=== PATIENT | female | born 1945 | race Two or more races ===

== ENCOUNTER 2017-08-12 12:01 | Outpatient (CLI) | payer OTHER ==
[~2017-08-12 12:01] MED LIST: ATACAND16 MG; CATAFLAM50 MG PO; ZOCOR5 MG
== END 2017-08-12 15:22 | disposition home or self-care (01) ==
LOC: RAD 12:01
DX: S92.355K Nondisplaced fracture of fifth metatarsal bone, left foot, subsequent encounter for fracture with nonunion (principal)

== ENCOUNTER 2018-01-14 13:53 | Outpatient (CLI) | payer OTHER ==
[~2018-01-14 13:53] MED LIST changes: +DICLOFENAC POTA50 MG PO; +TIZANIDINE HCL2 MG PO
== END 2018-01-14 14:02 | disposition home or self-care (01) ==
LOC: RAD 13:53
DX: S92.354K Nondisplaced fracture of fifth metatarsal bone, right foot, subsequent encounter for fracture with nonunion (principal)

== ENCOUNTER 2018-02-22 10:56 | Outpatient (CLI) | payer OTHER | END 2018-02-22 11:20 | disposition home or self-care (01) | LOC: MRI 10:56 | DX: M76.72 Peroneal tendinitis, left leg (principal) | CPT/HCPCS: 73721 ==

== ENCOUNTER 2018-09-09 14:12 | Outpatient (CLI) | payer OTHER | END 2018-09-09 15:00 | disposition home or self-care (01) | LOC: NUCLEAR 14:12 | DX: M81.0 Age-related osteoporosis without current pathological fracture (principal) ==

== ENCOUNTER 2018-11-12 12:25 | Outpatient (CLI) | payer OTHER | END 2018-11-12 12:32 | disposition home or self-care (01) | LOC: LAB 12:25 | DX: E88.89 Other specified metabolic disorders (principal); E55.9 Vitamin D deficiency, unspecified; M85.88 Other specified disorders of bone density and structure, other site; M81.8 Other osteoporosis without current pathological fracture; E56.1 Deficiency of vitamin K; E21.2 Other hyperparathyroidism ==

== ENCOUNTER 2020-05-17 10:56 | Outpatient (CLI) | payer OTHER ==
[~2020-05-17 10:56] MED LIST changes: +ZANAFLEX2 MG PO
== END 2020-05-17 11:09 | disposition home or self-care (01) ==
LOC: SONOGRAMA 10:56
PROVIDERS: ATTEND Urology
DX: N30.00 Acute cystitis without hematuria (principal); R31.1 Benign essential microscopic hematuria

== ENCOUNTER → 2020-09-10 | Outpatient (CLI) | payer OTHER | END | disposition home or self-care (01) | LOC: RAD 11:46 | PROVIDERS: ATTEND Physical Medicine & Rehabilitation | DX: M76.51 Patellar tendinitis, right knee (principal); M17.11 Unilateral primary osteoarthritis, right knee ==

== ENCOUNTER → 2020-10-18 | Outpatient (CLI) | payer OTHER | END | disposition home or self-care (01) | LOC: MRI 13:15 | PROVIDERS: ATTEND Physical Medicine & Rehabilitation | DX: M17.11 Unilateral primary osteoarthritis, right knee (principal); S83.231A Complex tear of medial meniscus, current injury, right knee, initial encounter | CPT/HCPCS: 73721 ==

== ENCOUNTER 2021-01-03 14:22 | Outpatient (CLI) | payer OTHER | END 2021-01-03 14:25 | disposition home or self-care (01) | LOC: NUCLEAR 14:22 | PROVIDERS: ATTEND Physical Medicine & Rehabilitation | DX: M81.0 Age-related osteoporosis without current pathological fracture (principal) ==

== ENCOUNTER 2021-10-22 11:52 | Emergency (ER) | payer OTHER ==
[~2021-10-22] VITALS: Ht 149.9 cm; Wt 56.7 kg
[2021-10-22] MEDS ORDERED: MECLIZINE HCL25 MG PO (16:03)
== END 2021-10-22 16:16 | disposition home or self-care (01) ==
LOC: ER 11:52
DX: R42 Dizziness and giddiness (principal); I10 Essential (primary) hypertension; Z88.2 Allergy status to sulfonamides; Z88.8 Allergy status to other drugs, medicaments and biological substances

== ENCOUNTER 2023-10-26 17:36 | Emergency (ER) | payer OTHER ==
[~2023-10-26] VITALS: Ht 147.3 cm; Wt 55.3 kg
[~2023-10-26 17:36] MED LIST changes: +MECLIZINE HCL25 MG PO; +NABUMETONE500 MG PO
[2023-10-26 22:18] LABS: PH,URINE 5.5 (5.0-8.0); URINE APPEARANCE Clear; URINE BILIRRUBIN Negative (NEGATIVE); URINE BLOOD Negative; URINE COLOR Yellow; URINE GLUCOSE Negative (NEGATIVE); URINE LEUKOCYTE Negative; URINE NITRATE Negative; URINE PROTEIN Negative (NEGATIVE); URINE UROBILINOGEN 0.2 E.U./dl
[2023-10-26 22:21] LABS: URINE BACTERIA 22.6 uL (0.0-1933); URINE EPITHELIAL CELLS 8.6 uL (0.0-38.8); URINE RBC 2.5 uL (0.0-20.8); URINE WBC 8.8 uL (0.0-23.2)
[2023-10-26 22:38] LABS: CALCIUM 10.8 mg/dL (8.5-10.1); CREATININE SERUM 0.92 mg/dL (0.55-1.02); GFR 59.51; POTASSIUM 4.09 mEq/L (3.5-5.1)
[2023-10-26 23:21] LABS: HEMATOCRIT 40.3 % (36.0-45.00); HEMOGLOBIN 13.5 g/dL (12.0-15.00); MEAN CELL VOLUME 80.7 fL (80.00-100.00); MEAN CORPUSCULAR HEMOGLOBIN 27.1 pg (27.00-32.0); MEAN CORPUSCULAR HGB CONC 33.6 g/dl (32.0-36.0); PLATELET COUNT 284 K/uL (150-450); RED BLOOD COUNT 4.99 M/uL (4.00-6.00); RED CELL DISTRIBUTION WIDTH 15.2 % (11.5-14.5)
[2023-10-26] MEDS ORDERED: AMOX1TAB5 PO (23:41)
[2023-10-26] MEDS ORDERED: CLOTRIMAZOLE45 G1 VAG (23:46)
== END 2023-10-27 00:08 | disposition home or self-care (01) ==
LOC: ER 17:37
PROVIDERS: General Practice; Nurse Practitioner Family
DX: N39.0 Urinary tract infection, site not specified (principal); B96.20 Unspecified Escherichia coli [E. coli] as the cause of diseases classified elsewhere; R30.0 Dysuria; I10 Essential (primary) hypertension; Z88.2 Allergy status to sulfonamides; Z88.8 Allergy status to other drugs, medicaments and biological substances

== ENCOUNTER 2024-05-19 23:00 | Emergency (ER) | payer OTHER ==
[~2024-05-19] VITALS: Ht 149.9 cm; Wt 49.9 kg
[~2024-05-19 23:00] MED LIST changes: +AMOX1TAB5 PO; +CLOTRIMAZOLE45 G1 VAG
[2024-05-19] MEDS ORDERED: LOSARTAN POTAS100 MG PO (23:33)
[2024-05-20] MEDS ORDERED: RINGERS SOLUTION,LACTATED 100 ML IV STA (03:07)
[2024-05-20] MEDS ORDERED: FAMOtidine 10 MG/ML (4ML VIAL) IV PUSH STA (03:08)
[2024-05-20] MEDS ORDERED: ONDANSETRON HCL 2 MG/ML VIAL IV STA (03:08)
[2024-05-20] MEDS ORDERED: HYOSCYAMINE SULFATE 0.125 MG TAB.SUBL SL ONE (03:15)
[2024-05-20] MEDS ORDERED: KETOROLAC TROMETHAMINE 30 MG VIAL IV STA (03:16)
[2024-05-20 04:04] LABS: HEMATOCRIT 40.7 % (36.0-45.00); HEMOGLOBIN 13.4 g/dL (12.0-15.00); MEAN CELL VOLUME 79.1 fL (80.00-100.00); MEAN CORPUSCULAR HEMOGLOBIN 26.1 pg (27.00-32.0); PLATELET COUNT 246 K/uL (150-450); RED BLOOD COUNT 5.14 M/uL (4.00-6.00); RED CELL DISTRIBUTION WIDTH 14.7 % (11.5-14.5)
[2024-05-20 04:21] LABS: CALCIUM 9.9 mg/dL (8.5-10.1); CREATININE SERUM 1.28 mg/dL (0.55-1.02); GFR 40.54; POTASSIUM 4.08 mEq/L (3.5-5.1)
== END 2024-05-20 06:25 | disposition home or self-care (01) ==
LOC: ER 23:01
DX: B34.9 Viral infection, unspecified (principal); K29.70 Gastritis, unspecified, without bleeding; R11.10 Vomiting, unspecified; R53.81 Other malaise; Z88.2 Allergy status to sulfonamides
CPT/HCPCS: 36415; 96365; 99282; J1885; J2405; J3490

== ENCOUNTER 2025-03-09 03:34 | Emergency (ER) | payer OTHER ==
[~2025-03-09] VITALS: Ht 152.4 cm; Wt 45.4 kg
[~2025-03-09 03:34] MED LIST changes: +LOSARTAN POTAS100 MG PO
[2025-03-09] MEDS ORDERED: 0.9 % SODIUM CHLORIDE 1,000 ML IV STA (04:12)
[2025-03-09] MEDS ORDERED: KETOROLAC TROMETHAMINE 30 MG VIAL IV STA (04:13)
[2025-03-09] MEDS ORDERED: HYOSCYAMINE SULFATE 0.125 MG TAB.SUBL ONE (04:13)
[2025-03-09] MEDS ORDERED: KETOROLAC TROMETHAMINE 30 MG VIAL ONE (04:13)
[2025-03-09] MEDS ORDERED: HYOSCYAMINE SULFATE 0.125 MG TAB.SUBL SL ONE (04:15)
[2025-03-09 05:03] LABS: BASO % 0.9 % (0.1-1.2); EOS # 0.16 (0.04-0.54); EOS % 2.3 % (0.7-7.0); LYMPH # 1.73 (1.18-3.74); LYMPH % 25.1 % (19.3-53.1); MEAN PLATELET VOLUME 10.10 fl (9.4-12.4); MONO # 0.48 (0.24-0.82); MONO % 7.0 % (4.7-12.5); NEUT # 4.43 (1.56-6.13); NEUT % 64.3 % (34.0-71.1); RED CELL DISTRIBUTION WIDTH 14.9 % (11.6-14.4)
[2025-03-09 05:05] LABS: ALT/SGPT 13.0 U/L (12-78); AST/SGOT 14.0 U/L (15-37); BILIRUBIN TOTAL 0.36 mg/dL (0.3-1.2); BUN CREA RATIO 15.0 (7.0-25.0); CREATININE SERUM 0.82 mg/dL (0.55-1.02); GFR 67.6; GLOBULINA 3.2 G/DL (2.4-3.5); GLUCOSE FASTING 124.0 mg/dL (65-100); OSMOLALITY SERUM 286.0 MOSM/KG (275-295)
[2025-03-09 06:01] LABS: URINE APPEARANCE Cloudy; URINE BILIRRUBIN Negative (NEGATIVE); URINE BLOOD Negative; URINE COLOR Yellow; URINE GLUCOSE Negative (NEGATIVE); URINE KETONE 15 (NEGATIVE); URINE LEUKOCYTE Small; URINE NITRATE Negative; URINE PROTEIN Negative (NEGATIVE); URINE UROBILINOGEN 1.0 E.U./dl
[2025-03-09 06:04] LABS: URINE BACTERIA 47.9 uL (0.0-1933); URINE EPITHELIAL CELLS 6.4 uL (0.0-38.8); URINE RBC 50.8 uL (0.0-20.8); URINE WBC 27.8 uL (0.0-23.2)
[2025-03-09 06:50] LABS: URINE CAST 1.17 uL (0.0-1.40)
[2025-03-09 06:51] LABS: URINE CRYSTALS MANY /HPF
[2025-03-09] MEDS ORDERED: METRONIDAZOLE/SODIUM CHLORIDE 500 MG/100 ML PIGGYBACK IV ONE ×2 (11:38→11:45)
== END 2025-03-09 15:30 | disposition home or self-care (01) ==
LOC: ER 03:34
DX: R10.9 Unspecified abdominal pain (principal); Z88.2 Allergy status to sulfonamides; K57.32 Diverticulitis of large intestine without perforation or abscess without bleeding
CPT/HCPCS: 36415; 74176; 96365; 96366; 99284; J1885; J7030

== ENCOUNTER 2025-03-09 16:58 | Inpatient (IN) | payer OTHER ==
[~2025-03-09] VITALS: Ht 154.9 cm; Wt 49.9 kg
[2025-03-09] MEDS ORDERED: 0.9 % SODIUM CHLORIDE 1,000 ML IV ONE (17:30)
[2025-03-09] MEDS ORDERED: PANTOPRAZOLE SODIUM 40 MG/VIAL VIAL IV ONE (17:30)
[2025-03-09 18:21] LABS: BASO % 0.2 % (0.1-1.2); EOS # 0.01 (0.04-0.54); EOS % 0.1 % (0.7-7.0); LYMPH # 1.03 (1.18-3.74); LYMPH % 6.9 % (19.3-53.1); MEAN PLATELET VOLUME 10.10 fl (9.4-12.4); MONO # 0.58 (0.24-0.82); MONO % 3.9 % (4.7-12.5); NEUT # 13.19 (1.56-6.13); NEUT % 88.6 % (34.0-71.1); RED CELL DISTRIBUTION WIDTH 15.0 % (11.6-14.4)
[2025-03-09 18:53] LABS: INR 1.04
[2025-03-09] MEDS ORDERED: PIPERACILLIN/TAZOBACTAM SODIUM 3.375 GM VIAL IV ONE ×2 (19:00→19:53)
[2025-03-09] MEDS ORDERED: PANTOPRAZOLE SODIUM 40 MG/VIAL VIAL IV SCH (22:12)
[2025-03-09] MEDS ORDERED: ONDANSETRON HCL 4 MG in 0.9 % SODIUM CHLORIDE 50 ML IV PRN (22:15)
[2025-03-09] MEDS ORDERED: MORPHINE SULFATE 2 MG/ML CARTRIDGE IV PRN (22:30)
[2025-03-09] MEDS ORDERED: 0.9 % SODIUM CHLORIDE 1,000 ML IV SCH (22:30)
[2025-03-09] MEDS ORDERED: hydrALAZINE HCL 20 MG VIAL IV PRN (22:45)
[2025-03-10] MEDS ORDERED: PIPERACILLIN/TAZOBACTAM SODIUM 3.375 GM in 0.9 % SODIUM CHLORIDE 100 ML IV SCH
[2025-03-10 02:33] LABS: ALT/SGPT 10.0 U/L (12-78); AST/SGOT 8.0 U/L (15-37); BILIRUBIN TOTAL 0.37 mg/dL (0.3-1.2); BUN CREA RATIO 22.0 (7.0-25.0); CREATININE SERUM 0.78 mg/dL (0.55-1.02); GFR 71.61; GLOBULINA 2.3 G/DL (2.4-3.5); GLUCOSE FASTING 101.0 mg/dL (65-100); OSMOLALITY SERUM 289.0 MOSM/KG (275-295)
[2025-03-10] MEDS ORDERED: hydrALAZINE HCL 20 MG VIAL ONE (02:45)
[2025-03-10 02:46] VITALS: BP 163/78; O2SAT 96
[2025-03-10 03:35] LABS: URINE APPEARANCE Clear; URINE BILIRRUBIN Negative (NEGATIVE); URINE BLOOD Small; URINE COLOR Yellow; URINE GLUCOSE Negative (NEGATIVE); URINE KETONE 15 (NEGATIVE); URINE LEUKOCYTE Negative; URINE NITRATE Negative; URINE PROTEIN Trace (NEGATIVE); URINE UROBILINOGEN 0.2 E.U./dl
[2025-03-10 03:39] LABS: URINE BACTERIA 13.4 uL (0.0-1933); URINE EPITHELIAL CELLS 4.7 uL (0.0-38.8); URINE RBC 5.2 uL (0.0-20.8); URINE WBC 9.2 uL (0.0-23.2)
[2025-03-10 03:47] LABS: URINE CAST 0.00 uL (0.0-1.40)
[2025-03-10 08:20] VITALS: BP 129/63; O2SAT 99
[2025-03-10] MEDS ORDERED: DEXTROSE 5 % AND 0.9 % NACL 1,000 ML IV SCH (14:15)
[2025-03-10 17:04] VITALS: BP 155/66; O2SAT 99
[2025-03-10 18:45] LABS: BASO % 0.7 % (0.1-1.2); EOS # 0.11 (0.04-0.54); EOS % 1.6 % (0.7-7.0); LYMPH # 1.36 (1.18-3.74); LYMPH % 19.4 % (19.3-53.1); MEAN PLATELET VOLUME 11.10 fl (9.4-12.4); MONO # 0.56 (0.24-0.82); MONO % 8.0 % (4.7-12.5); NEUT # 4.89 (1.56-6.13); NEUT % 69.9 % (34.0-71.1); RED CELL DISTRIBUTION WIDTH 15.1 % (11.6-14.4)
[2025-03-11 02:14] VITALS: BP 146/74
[2025-03-11 07:57] LABS: BASO % 0.6 % (0.1-1.2); EOS # 0.18 (0.04-0.54); EOS % 2.9 % (0.7-7.0); LYMPH # 1.49 (1.18-3.74); LYMPH % 23.7 % (19.3-53.1); MEAN PLATELET VOLUME 11.10 fl (9.4-12.4); MONO # 0.44 (0.24-0.82); MONO % 7.0 % (4.7-12.5); NEUT # 4.13 (1.56-6.13); NEUT % 65.5 % (34.0-71.1); RED CELL DISTRIBUTION WIDTH 15.4 % (11.6-14.4)
[2025-03-11 08:14] LABS: ob POSITIVE (NEGATIVE)
[2025-03-11 08:21] LABS: ALT/SGPT 10.0 U/L (12-78); AST/SGOT 14.0 U/L (15-37); BILIRUBIN TOTAL 0.6 mg/dL (0.3-1.2); BUN CREA RATIO 11.0 (7.0-25.0); CREATININE SERUM 0.72 mg/dL (0.55-1.02); GFR 78.54; GLOBULINA 1.9 G/DL (2.4-3.5); GLUCOSE FASTING 141.0 mg/dL (65-100); OSMOLALITY SERUM 295.0 MOSM/KG (275-295)
[2025-03-11 09:13] VITALS: BP 118/54; O2SAT 90
[2025-03-11] MEDS ORDERED: DEXTROSE 5 % IN WATER 1,000 ML IV SCH (13:15)
[2025-03-11] MEDS ORDERED: AA 4.25%/CAL/LYTES/DEXT 5% 1,000 ML PERIFERAL SCH (17:00)
[2025-03-11 18:42] LABS: CHOL HDL RATIO 2.7 (0-5.0); HDL 48.0 mg/dl (40-60); LDL 56.0 mg/dl (0-130); VLDL 25.0 (0-39)
[2025-03-11 18:44] VITALS: BP 118/56; O2SAT 98
[2025-03-12 02:39] VITALS: BP 153/73; O2SAT 98
[2025-03-12 08:52] VITALS: BP 157/71; O2SAT 99
[2025-03-12 11:56] LABS: BASO % 0.7 % (0.1-1.2); EOS # 0.22 (0.04-0.54); EOS % 3.8 % (0.7-7.0); LYMPH # 0.88 (1.18-3.74); LYMPH % 15.3 % (19.3-53.1); MEAN PLATELET VOLUME 10.70 fl (9.4-12.4); MONO # 0.41 (0.24-0.82); MONO % 7.1 % (4.7-12.5); NEUT # 4.14 (1.56-6.13); NEUT % 72.2 % (34.0-71.1); RED CELL DISTRIBUTION WIDTH 15.1 % (11.6-14.4)
[2025-03-12] MEDS ORDERED: LOSARTAN POTASSIUM 25 MG TABLET PO NR (12:00)
[2025-03-12 12:17] LABS: INR 1.15
[2025-03-12 12:31] LABS: ALT/SGPT 10.0 U/L (12-78); AST/SGOT 15.0 U/L (15-37); BILIRUBIN TOTAL 0.62 mg/dL (0.3-1.2); BILIRUBIN,CONJUGATED 0.13 mg/dL (0.0-0.2); BUN CREA RATIO 13.0 (7.0-25.0); CHOL HDL RATIO 2.8 (0-5.0); CREATININE SERUM 0.75 mg/dL (0.55-1.02); GFR 74.93; GLOBULINA 1.8 G/DL (2.4-3.5); HDL 41.0 mg/dl (40-60); LDL 47.0 mg/dl (0-130); OSMOLALITY SERUM 291.0 MOSM/KG (275-295); VLDL 28.0 (0-39)
[2025-03-12 12:32] LABS: GLUCOSE FASTING 265.0 mg/dL (65-100)
[2025-03-12 19:35] VITALS: BP 167/69
[2025-03-12] MEDS ORDERED: AMLODIPINE BESYLATE 5 MG TABLET PO SCH (20:10)
[2025-03-13 02:01] VITALS: BP 168/70; O2SAT 98
[2025-03-13] MEDS ORDERED: LOSARTAN POTASSIUM 25 MG TABLET PO SCH (09:00)
[2025-03-13 09:17] VITALS: BP 150/69; O2SAT 97
[2025-03-13] MEDS ORDERED: AA 2.36%/D6.8W/FAT/E-LYTES NO9 1,440 ML IV SCH (17:00)
[2025-03-13 17:17] VITALS: BP 140/66; O2SAT 97
[2025-03-13] MEDS ORDERED: CLONAZEPAM 0.5 MG TABLET PO ONE (20:45)
[2025-03-13] MEDS ORDERED: DEXTROSE 5 % AND 0.9 % NACL 1,000 ML IV SCH (20:45)
[2025-03-14 02:02] VITALS: BP 152/62; O2SAT 96
[2025-03-14 08:32] VITALS: BP 119/58; O2SAT 97
[2025-03-14 13:22] LABS: BASO % 0.6 % (0.1-1.2); EOS # 0.17 (0.04-0.54); EOS % 3.5 % (0.7-7.0); LYMPH # 0.82 (1.18-3.74); LYMPH % 16.7 % (19.3-53.1); MEAN PLATELET VOLUME 10.60 fl (9.4-12.4); MONO # 0.58 (0.24-0.82); MONO % 11.8 % (4.7-12.5); NEUT # 3.31 (1.56-6.13); NEUT % 67.2 % (34.0-71.1); RED CELL DISTRIBUTION WIDTH 15.1 % (11.6-14.4)
[2025-03-14 14:18] LABS: ALT/SGPT 17.0 U/L (12-78); AST/SGOT 22.0 U/L (15-37); BILIRUBIN TOTAL 0.4 mg/dL (0.3-1.2); BUN CREA RATIO 11.0 (7.0-25.0); CREATININE SERUM 0.63 mg/dL (0.55-1.02); GFR 91.63; GLOBULINA 2.3 G/DL (2.4-3.5); GLUCOSE FASTING 90.0 mg/dL (65-100); OSMOLALITY SERUM 290.0 MOSM/KG (275-295)
[2025-03-14] MEDS ORDERED: DEXTROSE 5 % IN WATER 1,000 ML IV SCH (15:00)
[2025-03-14] MEDS ORDERED: POTASSIUM BICARBONATE/CIT AC 25 MEQ TABLET.EFF PO NR (16:00)
[2025-03-14 17:00] VITALS: BP 142/58; O2SAT 97
[2025-03-14] MEDS ORDERED: POTASSIUM CHLORIDE IN WATER 40 MEQ/100 ML PIGGYBAG IV SCH (17:00)
[2025-03-15 02:12] VITALS: BP 159/75
[2025-03-15 06:12] LABS: BASO % 0.6 % (0.1-1.2); EOS # 0.18 (0.04-0.54); EOS % 3.9 % (0.7-7.0); LYMPH # 0.58 (1.18-3.74); LYMPH % 12.5 % (19.3-53.1); MEAN PLATELET VOLUME 10.70 fl (9.4-12.4); MONO # 0.52 (0.24-0.82); MONO % 11.2 % (4.7-12.5); NEUT # 3.31 (1.56-6.13); NEUT % 71.6 % (34.0-71.1); RED CELL DISTRIBUTION WIDTH 15.2 % (11.6-14.4)
[2025-03-15 07:14] LABS: ALT/SGPT 14.0 U/L (12-78); AST/SGOT 23.0 U/L (15-37); BILIRUBIN TOTAL 0.4 mg/dL (0.3-1.2); BUN CREA RATIO 8.0 (7.0-25.0); CREATININE SERUM 0.65 mg/dL (0.55-1.02); GFR 88.38; GLOBULINA 2.4 G/DL (2.4-3.5); GLUCOSE FASTING 100.0 mg/dL (65-100); OSMOLALITY SERUM 282.0 MOSM/KG (275-295)
[2025-03-15 09:38] VITALS: BP 132/65; O2SAT 95
[2025-03-15] MEDS ORDERED: POTASSIUM CHLORIDE 20MEQ/100ML H2O PB IV NR (11:15)
[2025-03-15] MEDS ORDERED: CALCIUM CARBONATE/VITAMIN D3 1 TAB TABLET PO SCH (13:00)
[2025-03-15 19:09] VITALS: BP 151/70; O2SAT 96
[2025-03-16 03:11] VITALS: BP 171/67; O2SAT 99
[2025-03-16 05:55] LABS: BASO % 0.5 % (0.1-1.2); EOS # 0.18 (0.04-0.54); EOS % 4.3 % (0.7-7.0); LYMPH # 0.70 (1.18-3.74); LYMPH % 16.6 % (19.3-53.1); MEAN PLATELET VOLUME 10.60 fl (9.4-12.4); MONO # 0.49 (0.24-0.82); MONO % 11.6 % (4.7-12.5); NEUT # 2.82 (1.56-6.13); NEUT % 66.8 % (34.0-71.1); RED CELL DISTRIBUTION WIDTH 15.2 % (11.6-14.4)
[2025-03-16 06:55] LABS: ALT/SGPT 17.0 U/L (12-78); AST/SGOT 20.0 U/L (15-37); BILIRUBIN TOTAL 0.52 mg/dL (0.3-1.2); BUN CREA RATIO 7.0 (7.0-25.0); CREATININE SERUM 0.59 mg/dL (0.55-1.02); GFR 98.83; GLOBULINA 2.8 G/DL (2.4-3.5); GLUCOSE FASTING 96.0 mg/dL (65-100); OSMOLALITY SERUM 282.0 MOSM/KG (275-295)
[2025-03-16 09:55] VITALS: BP 135/63; O2SAT 93
[2025-03-16] MEDS ORDERED: POTASSIUM CHLORIDE IN WATER 100 ML IV NR (11:15)
[2025-03-16] MEDS ORDERED: POTASSIUM CHLORIDE 10 MEQ CAPSULE PO NR (13:30)
[2025-03-16] MEDS ORDERED: POTASSIUM CHLORIDE 10 MEQ CAPSULE PO SCH ×2 (17:00)
[2025-03-16 19:47] VITALS: BP 160/74; O2SAT 97
[2025-03-17 03:06] VITALS: BP 164/69; O2SAT 98
[2025-03-17 08:03] LABS: BASO % 0.3 % (0.1-1.2); EOS # 0.19 (0.04-0.54); EOS % 5.1 % (0.7-7.0); LYMPH # 0.91 (1.18-3.74); LYMPH % 24.2 % (19.3-53.1); MEAN PLATELET VOLUME 10.80 fl (9.4-12.4); MONO # 0.39 (0.24-0.82); MONO % 10.4 % (4.7-12.5); NEUT # 2.26 (1.56-6.13); NEUT % 60.0 % (34.0-71.1); RED CELL DISTRIBUTION WIDTH 15.0 % (11.6-14.4)
[2025-03-17 08:14] LABS: BUN CREA RATIO 8.0 (7.0-25.0); CREATININE SERUM 0.6 mg/dL (0.55-1.02); GFR 96.94; GLUCOSE FASTING 79.0 mg/dL (65-100); OSMOLALITY SERUM 281.0 MOSM/KG (275-295)
[2025-03-17] MEDS ORDERED: LOSARTAN POTASSIUM 25 MG TABLET PO SCH (09:00)
[2025-03-17 10:36] VITALS: BP 148/70; O2SAT 96
[2025-03-17 17:30] VITALS: BP 114/57; O2SAT 98
[2025-03-17] MEDS ORDERED: PANTOPRAZOLE SODIUM 40 MG/VIAL VIAL IV PUSH ONE (20:15)
[2025-03-17 21:38] LABS: COVID-19 AG NEGATIVE (NEGATIVE)
[2025-03-17 22:22] LABS: ABG PH 7.441 (7.35-7.45); ABG PO2 87.0 mmHg (80-100); BICARBONATE 23.6 mmol/l (23-25)
[2025-03-17 22:40] LABS: o2 21 %
[2025-03-18 02:39] VITALS: BP 130/69; O2SAT 98
[2025-03-18] MEDS ORDERED: PANTOPRAZOLE SODIUM 40 MG/VIAL VIAL IV SCH (09:00)
[2025-03-18 10:16] VITALS: BP 145/71; O2SAT 98
[2025-03-18] MEDS ORDERED: OSELTAMIVIR PHOSPHATE 75 MG CAPSULE PO SCH (17:00)
[2025-03-18 17:54] VITALS: BP 148/64; O2SAT 95
[2025-03-19 03:14] VITALS: BP 161/71; O2SAT 98
[2025-03-19 09:17] VITALS: BP 126/61; O2SAT 98
[2025-03-19] MEDS ORDERED: OSEL75CA PO (12:19)
[2025-03-19] MEDS ORDERED: LOSARTAN POTASS25 MG PO (12:19)
[2025-03-19] MEDS ORDERED: AMLODIPINE BESYL5 MG PO (12:19)
[2025-03-19] MEDS ORDERED: PROTONIX40 MG PO (12:19)
[2025-03-19 18:26] VITALS: BP 160/68; O2SAT 97
== END 2025-03-19 21:09 | disposition home or self-care (01) | DRG 378 ==
LOC: ER 16:58 → MEDJ 22:19 → SEC-K 22:19 → MEDJ 03-10 11:45
PROVIDERS: General Practice; Internal Medicine; ADMIT Internal Medicine; ATTEND Internal Medicine
PROC: BW21YZZ Computerized Tomography (CT Scan) of Abdomen and Pelvis using Other Contrast (ICD-10-PCS; 2025-03-09)
PROC: 30233N1 Transfusion of Nonautologous Red Blood Cells into Peripheral Vein, Percutaneous Approach (ICD-10-PCS; 2025-03-10)
PROC: 30233L1 Transfusion of Nonautologous Fresh Plasma into Peripheral Vein, Percutaneous Approach (ICD-10-PCS; principal; 2025-03-13)
PROC: 30233K1 Transfusion of Nonautologous Frozen Plasma into Peripheral Vein, Percutaneous Approach (ICD-10-PCS; 2025-03-13)
PROC: CD271ZZ Tomographic (Tomo) Nuclear Medicine Imaging of Gastrointestinal Tract using Technetium 99m (Tc-99m) (ICD-10-PCS; 2025-03-13)
PROC: 8E0ZXY6 Isolation (ICD-10-PCS; 2025-03-17)
DX: K57.33 Diverticulitis of large intestine without perforation or abscess with bleeding (principal); K90.49 Malabsorption due to intolerance, not elsewhere classified; K92.1 Melena; D64.9 Anemia, unspecified; K52.9 Noninfective gastroenteritis and colitis, unspecified; K80.20 Calculus of gallbladder without cholecystitis without obstruction; J10.1 Influenza due to other identified influenza virus with other respiratory manifestations; I10 Essential (primary) hypertension; E87.6 Hypokalemia; M79.7 Fibromyalgia